=== PATIENT | male | born 1975 | race African-American/Black ===

== ENCOUNTER 2017-02-07 10:57 | Emergency (ER) | payer MEDICARE, MEDICAID ==
[~2017-02-07] VITALS: Ht 182.9 cm; Wt 125.0 kg
[~2017-02-07 10:57] MED LIST: ADVAIR; COREG; EFFEXOR XR; EPIZICOM; IBUPROFEN; LIPITOR; LOVAZA; METFORMIN; VENTOLIN; [UNRECOGNIZED DRUG - OTHER]
[2017-02-07] MEDS ORDERED: ACETAMINOPHEN 325MG TABLET PO ONE (11:45)
[2017-02-07] MEDS ORDERED: BACITRACIN ZINC OINT UDPKT TOP ONE (11:45)
[2017-02-07] MEDS ORDERED: TETANUS, DIPHTHERIA, PERTUSSIS VAC/PF 0.5ML (>7YR OLD) IM ONE (11:45)
[2017-02-07] MEDS ORDERED: LIDOCAINE HCL 1% 20ML VIAL (Pyxis) INJ MC ONE (12:30)
[2017-02-07 16:09] VITALS: BP 157/97
== END 2017-02-07 16:54 | disposition home or self-care (01) ==
LOC: ER 12:21
DX: S61.011A Laceration without foreign body of right thumb without damage to nail, initial encounter (principal); W27.1XXA Contact with garden tool, initial encounter; Y93.H2 Activity, gardening and landscaping; Y92.096 Garden or yard of other non-institutional residence as the place of occurrence of the external cause; R03.0 Elevated blood-pressure reading, without diagnosis of hypertension; E11.9 Type 2 diabetes mellitus without complications; F17.210 Nicotine dependence, cigarettes, uncomplicated
CPT/HCPCS: 12002; 73140; 90471; 90715; 99284; J3490

== ENCOUNTER 2018-12-18 16:24 | Emergency (ER) | payer MEDICARE, MEDICAID ==
[~2018-12-18] VITALS: Ht 185.4 cm; Wt 82.0 kg
[2018-12-18] MEDS ORDERED: LEVOFLOXACIN 500MG TABLET PO ONE (18:45)
[2018-12-18] MEDS ORDERED: PREDNISONE 20MG TABLET PO ONE (18:45)
[2018-12-18] MEDS ORDERED: IPRATROPIUM/ALBUTEROL 0.5-3(2.5)MG/3ML NEB HHN ONE (18:45)
[2018-12-18] MEDS ORDERED: IBUPROFEN 800MG TABLET PO ONE (18:45)
[2018-12-18 18:51] VITALS: BP 155/99
== END 2018-12-18 19:18 | disposition home or self-care (01) ==
LOC: ER 16:24
DX: S39.012A Strain of muscle, fascia and tendon of lower back, initial encounter (principal); J40 Bronchitis, not specified as acute or chronic; J44.9 Chronic obstructive pulmonary disease, unspecified; E11.9 Type 2 diabetes mellitus without complications; I10 Essential (primary) hypertension; F17.200 Nicotine dependence, unspecified, uncomplicated; V49.49XA Driver injured in collision with other motor vehicles in traffic accident, initial encounter; Y93.89 Activity, other specified; Y92.89 Other specified places as the place of occurrence of the external cause; Y99.8 Other external cause status; Z79.899 Other long term (current) drug therapy; Z88.0 Allergy status to penicillin
CPT/HCPCS: 94640; 99284; 99406; J7512; J7620

== ENCOUNTER 2021-09-21 10:01 | Emergency (ER) | payer MEDICARE, MEDICAID ==
[~2021-09-21] VITALS: Ht 185.4 cm; Wt 111.0 kg
[2021-09-21] MEDS ORDERED: ALBUTEROL (0.083%) 2.5MG/3ML NEB HHN STA (10:12)
[2021-09-21] MEDS ORDERED: IPRATROPIUM BROMIDE (0.02%) 0.5MG/2.5ML NEB HHN STA (10:12)
[2021-09-21] MEDS ORDERED: LEVO500T89 MT (11:22)
[2021-09-21] MEDS ORDERED: ALBU6.7H9 INH (11:22)
[2021-09-21 12:14] VITALS: BP 148/87
== END 2021-09-21 12:20 | disposition home or self-care (01) ==
LOC: ER 10:01
DX: J44.1 Chronic obstructive pulmonary disease with (acute) exacerbation (principal); E11.9 Type 2 diabetes mellitus without complications; I10 Essential (primary) hypertension; Z88.0 Allergy status to penicillin
CPT/HCPCS: 71045; 94644; 99285

== ENCOUNTER 2022-03-03 18:15 | Inpatient (IN) | payer MEDICARE, MEDICAID ==
[~2022-03-03] VITALS: Ht 175.3 cm; Wt 105.9 kg
[~2022-03-03 18:15] MED LIST changes: +ALBU6.7H9 INH; +LEVO500T89 MT
[2022-03-03] MEDS ORDERED: METHYLPREDNISOLONE SOD SUCC 125 MG/2 ML VIAL IV STA (18:38)
[2022-03-03] MEDS ORDERED: IPRATROPIUM BROMIDE (0.02%) 0.5MG/2.5ML NEB HHN STA (18:38)
[2022-03-03] MEDS ORDERED: ALBUTEROL (0.083%) 2.5MG/3ML NEB HHN STA (18:38)
[2022-03-03] MEDS ORDERED: HYDRALAZINE 20MG/ML VIAL IV ONE (18:45)
[2022-03-03] MEDS ORDERED: MAGNESIUM 2 G PREMIX 50 ML IV ONE (18:45)
[2022-03-03] MEDS ORDERED: AZITHROMYCIN 500 MG in DEXT 5% WATER 250 ML IV SCH (18:45)
[2022-03-03] MEDS ORDERED: CEFTRIAXONE 1 G PREMIX 50 ML IV ONE (18:45)
[2022-03-03 19:09] LABS: BG CARBOXYHEMOGLOBIN 2.1 % (0.5-1.5); BG DEOXYHEMOGLOBIN 5.5 % (0.0-5.0); BG FRACTION INSPIRED OXYGEN 36; BG HCO3 ACT 32.7 mmol/L (22.0-26.0); BG METHEMOGLOBIN 0.2 % (0.0-1.5); BG OXYGEN SATURATION 94.4 % (92.0-98.5); BG OXYHEMOGLOBIN 92.2 % (94.0-97.0); BG PCO2 60.5 mmHg (35.0-45.0); BG PO2 73.4 mmHg (75.0-100.0); BG SAMPLE SITE RIGHT RADIAL; BG TOTAL HEMOGLOBIN 15.3 g/dL (12.0-18.0); BG VENT MODE NASAL CANNULA
[2022-03-03 19:28] LABS: BASOPHILS % 0.7 % (0.0-2.0); EOSINOPHILS % 0.8 % (0.0-5.0); HEMATOCRIT. 41.9 % (42.0-52.0); HEMOGLOBIN. 14.2 g/dL (14.0-18.0); MEAN CORPUSCULAR HEMOGLOBIN 29.5 pg (28.0-32.0); MEAN PLATELET VOLUME 8.8 fl (7.4-10.4); MONOCYTES % 10.1 % (2.0-8.0); NEUTROPHILS % 61.4 % (40.0-76.0); PLATELET 246 x1000/uL (130-400); RED BLOOD CELL COUNT 4.82 mill/uL (4.7-6.1)
[2022-03-03 19:29] LABS: CHLORIDE 99 mEq/L (98-107)
[2022-03-03 22:48] LABS: BG BASE EXCESS 2.6 mmol/L (-2.0-2.0); BG CARBOXYHEMOGLOBIN 1.4 % (0.5-1.5); BG DEOXYHEMOGLOBIN 4.2 % (0.0-5.0); BG FRACTION INSPIRED OXYGEN 36; BG HCO3 ACT 29.4 mmol/L (22.0-26.0); BG METHEMOGLOBIN 0.2 % (0.0-1.5); BG OXYGEN SATURATION 95.7 % (92.0-98.5); BG OXYHEMOGLOBIN 94.2 % (94.0-97.0); BG PCO2 53.4 mmHg (35.0-45.0); BG PH 7.358 (7.350-7.450); BG SAMPLE SITE RIGHT RADIAL; BG TOTAL HEMOGLOBIN 15.2 g/dL (12.0-18.0); BG VENT MODE NASAL CANNULA
[2022-03-04] VITALS (9 sets, daily range): BP systolic 118–173; BP diastolic 86–114
[2022-03-04] MEDS ORDERED: HYDROCODONE/ACETAMINOPHEN 5/325MG TABLET PO PRN (04:30)
[2022-03-04] MEDS ORDERED: IPRATROPIUM/ALBUTEROL 0.5-3(2.5)MG/3ML NEB HHN PRN ×2 (04:30→14:30)
[2022-03-04] MEDS ORDERED: IPRATROPIUM/ALBUTEROL 0.5-3(2.5)MG/3ML NEB HHN SCH (04:30)
[2022-03-04] MEDS ORDERED: NALOXONE HCL 0.4 MG/ML 1ML VIAL IV PRN (05:15)
[2022-03-04] MEDS: METHYLPREDNISOLONE SOD SUCC 125 MG/2 ML VIAL IV SCH ×2 (06:02→12:05)
[2022-03-04] MEDS ORDERED: DEXTROSE 50% WATER 50ML SYRINGE IV PRN (06:45)
[2022-03-04] MEDS ORDERED: IBUPROFEN 400MG TABLET PO PRN (07:00)
[2022-03-04] MEDS ORDERED: SALMETEROL 50 MCG/INH 28 BLIST DISKUS INHR ORI SCH (09:00)
[2022-03-04] MEDS: BLOOD SUGAR DIAGNOSTIC STRIP TEST SCH ×4 (09:00→21:14)
[2022-03-04] MEDS: CARVEDILOL 3.125 MG TABLET PO SCH ×2 (09:16→21:13)
[2022-03-04] MEDS: VENLAFAXINE HCL 37.5MG SR CAPSULE 24HR PO SCH (09:16)
[2022-03-04] MEDS: GEMFIBROZIL 600MG TABLET PO SCH ×2 (09:16→17:06)
[2022-03-04] MEDS: METFORMIN HCL 500MG TABLET PO SCH ×2 (09:16→17:06)
[2022-03-04] MEDS: INSULIN LISPRO 100 UNITS/ML SUBCUT SCH ×4 (09:17→21:14)
[2022-03-04] MEDS ORDERED: ALBUTEROL (0.083%) 2.5MG/3ML NEB HHN SCH (12:00)
[2022-03-04] MEDS: NICOTINE 21MG PATCH TD SCH (15:23)
[2022-03-04] MEDS: LEVOFLOXACIN 500MG PREMIX 100 ML IV SCH (15:40)
[2022-03-04] MEDS: AMLODIPINE 5MG TABLET PO SCH (17:34)
[2022-03-04] MEDS ORDERED: AMLODIPINE 5MG TABLET PO SCH (21:00)
[2022-03-04] MEDS: GUAIFENESIN 600MG ER TABLET PO SCH (21:11)
[2022-03-04] MEDS: ATORVASTATIN CALCIUM 20MG TABLET PO SCH (21:12)
[2022-03-04] MEDS: METHYLPREDNISOLONE SOD SUCC 40 MG/ML VIAL IV SCH (21:12)
[2022-03-04] MEDS: IPRATROPIUM/ALBUTEROL 0.5-3(2.5)MG/3ML NEB HHN SCH (21:34)
[2022-03-05] VITALS (12 sets, daily range): BP systolic 141–165; BP diastolic 68–108
[2022-03-05] MEDS: IPRATROPIUM/ALBUTEROL 0.5-3(2.5)MG/3ML NEB HHN SCH ×4 (00:58→20:40)
[2022-03-05] MEDS: METHYLPREDNISOLONE SOD SUCC 40 MG/ML VIAL IV SCH ×3 (05:31→21:17)
[2022-03-05 07:11] LABS: BASOPHILS % 0.1 % (0.0-2.0); HEMOGLOBIN. 14.6 g/dL (14.0-18.0); LYMPHOCYTES % 7.8 % (20.0-50.0); MEAN CORPUSCULAR HEMOGLOBIN 29.6 pg (28.0-32.0); MEAN CORPUSCULAR VOLUME 86.9 fL (80.0-94.0); MONOCYTES % 5.1 % (2.0-8.0); PLATELET 303 x1000/uL (130-400); RED BLOOD CELL COUNT 4.94 mill/uL (4.7-6.1); RED CELL DISTRIBUTION WIDTH 13.2 % (11.6-14.6)
[2022-03-05 07:36] LABS: CHLORIDE 101 mEq/L (98-107)
[2022-03-05] MEDS: BLOOD SUGAR DIAGNOSTIC STRIP TEST SCH ×4 (08:34→21:26)
[2022-03-05] MEDS: VENLAFAXINE HCL 37.5MG SR CAPSULE 24HR PO SCH (08:35)
[2022-03-05] MEDS: GEMFIBROZIL 600MG TABLET PO SCH ×2 (08:35→17:11)
[2022-03-05] MEDS: METFORMIN HCL 500MG TABLET PO SCH ×2 (08:35→17:11)
[2022-03-05] MEDS: GUAIFENESIN 600MG ER TABLET PO SCH ×2 (08:35→21:17)
[2022-03-05] MEDS: NICOTINE 21MG PATCH TD SCH (08:36)
[2022-03-05] MEDS: CARVEDILOL 3.125 MG TABLET PO SCH ×2 (08:43→21:18)
[2022-03-05] MEDS: AMLODIPINE 5MG TABLET PO SCH ×2 (08:43→21:18)
[2022-03-05] MEDS: INSULIN LISPRO 100 UNITS/ML SUBCUT SCH ×4 (08:47→21:24)
[2022-03-05] MEDS: LEVOFLOXACIN 500MG PREMIX 100 ML IV SCH (15:27)
[2022-03-05] MEDS: ATORVASTATIN CALCIUM 20MG TABLET PO SCH (21:18)
[2022-03-06] VITALS (12 sets, daily range): BP systolic 123–172; BP diastolic 68–112
[2022-03-06] MEDS: IPRATROPIUM/ALBUTEROL 0.5-3(2.5)MG/3ML NEB HHN SCH ×4 (02:15→20:18)
[2022-03-06] MEDS: METHYLPREDNISOLONE SOD SUCC 40 MG/ML VIAL IV SCH ×3 (05:27→22:34)
[2022-03-06 06:51] LABS: BASOPHILS % 0.2 % (0.0-2.0); HEMATOCRIT. 44.9 % (42.0-52.0); HEMOGLOBIN. 15.3 g/dL (14.0-18.0); LYMPHOCYTES % 10.3 % (20.0-50.0); MEAN CORPUSCULAR HEMOGLOBIN 29.4 pg (28.0-32.0); MEAN CORPUSCULAR VOLUME 86.3 fL (80.0-94.0); MEAN PLATELET VOLUME 8.9 fl (7.4-10.4); MONOCYTES % 6.6 % (2.0-8.0); NEUTROPHILS % 82.9 % (40.0-76.0); PLATELET 328 x1000/uL (130-400); RED CELL DISTRIBUTION WIDTH 13.3 % (11.6-14.6)
[2022-03-06 07:18] LABS: CHLORIDE 100 mEq/L (98-107)
[2022-03-06] MEDS: BLOOD SUGAR DIAGNOSTIC STRIP TEST SCH ×4 (08:15→20:46)
[2022-03-06] MEDS: GUAIFENESIN 600MG ER TABLET PO SCH ×2 (08:16→20:36)
[2022-03-06] MEDS: AMLODIPINE 5MG TABLET PO SCH (08:16)
[2022-03-06] MEDS: VENLAFAXINE HCL 37.5MG SR CAPSULE 24HR PO SCH (08:16)
[2022-03-06] MEDS: GEMFIBROZIL 600MG TABLET PO SCH ×2 (08:17→17:07)
[2022-03-06] MEDS: CARVEDILOL 3.125 MG TABLET PO SCH ×2 (08:17→20:38)
[2022-03-06] MEDS: METFORMIN HCL 500MG TABLET PO SCH ×2 (08:17→17:07)
[2022-03-06] MEDS: NICOTINE 21MG PATCH TD SCH (08:17)
[2022-03-06] MEDS: INSULIN LISPRO 100 UNITS/ML SUBCUT SCH ×4 (08:17→20:46)
[2022-03-06] MEDS: LEVOFLOXACIN 500MG PREMIX 100 ML IV SCH (16:28)
[2022-03-06] MEDS ORDERED: CLONIDINE 0.2MG TABLET PO PRN (16:45)
[2022-03-06] MEDS: ATORVASTATIN CALCIUM 20MG TABLET PO SCH (20:38)
[2022-03-06] MEDS: HYDRALAZINE HCL 50MG TABLET PO SCH (22:36)
[2022-03-07] VITALS (9 sets, daily range): BP systolic 127–150; BP diastolic 68–99
[2022-03-07] MEDS: IPRATROPIUM/ALBUTEROL 0.5-3(2.5)MG/3ML NEB HHN SCH ×3 (01:44→14:39)
[2022-03-07] MEDS: METHYLPREDNISOLONE SOD SUCC 40 MG/ML VIAL IV SCH (05:59)
[2022-03-07] MEDS: HYDRALAZINE HCL 50MG TABLET PO SCH ×2 (06:01→14:01)
[2022-03-07] MEDS: BLOOD SUGAR DIAGNOSTIC STRIP TEST SCH ×2 (07:30→12:30)
[2022-03-07] MEDS ORDERED: AMLODIPINE 10MG TABLET PO SCH (09:00)
[2022-03-07] MEDS: GUAIFENESIN 600MG ER TABLET PO SCH (09:53)
[2022-03-07] MEDS: CARVEDILOL 3.125 MG TABLET PO SCH (09:54)
[2022-03-07] MEDS: METFORMIN HCL 500MG TABLET PO SCH (09:54)
[2022-03-07] MEDS: VENLAFAXINE HCL 37.5MG SR CAPSULE 24HR PO SCH (09:54)
[2022-03-07] MEDS: NICOTINE 21MG PATCH TD SCH (09:55)
[2022-03-07] MEDS: INSULIN LISPRO 100 UNITS/ML SUBCUT SCH ×2 (09:58→14:00)
[2022-03-07] MEDS: GEMFIBROZIL 600MG TABLET PO SCH (10:01)
[2022-03-07] MEDS ORDERED: INSULIN LISPRO 100 UNITS/ML SUBCUT NR (14:15)
[2022-03-08] MEDS ORDERED: METHYLPREDNISOLONE SOD SUCC 40 MG/ML VIAL IV SCH (09:00)
== END 2022-03-07 22:45 | disposition home or self-care (01) | DRG 193 ==
LOC: ER 18:15 → EDBEDREQ 22:12 → EDBEDREQTM 22:12 → EDBEDREQ 22:18 → 5EST 23:07 → EDBEDREQTM 23:13 → EDBEDREQ 23:13 → EDBEDREQSVC 23:13 → ENRESERV 03-04 00:58
PROVIDERS: ADMIT Internal Medicine; ATTEND Internal Medicine
PROC: 5A09357 Assistance with Respiratory Ventilation, Less than 24 Consecutive Hours, Continuous Positive Airway Pressure (ICD-10-PCS; principal; 2022-03-04)
DX: J18.9 Pneumonia, unspecified organism (principal); J96.01 Acute respiratory failure with hypoxia; J96.02 Acute respiratory failure with hypercapnia; J44.1 Chronic obstructive pulmonary disease with (acute) exacerbation; E44.0 Moderate protein-calorie malnutrition; J44.0 Chronic obstructive pulmonary disease with (acute) lower respiratory infection; R65.10 Systemic inflammatory response syndrome (SIRS) of non-infectious origin without acute organ dysfunction; M79.7 Fibromyalgia; I10 Essential (primary) hypertension; F17.200 Nicotine dependence, unspecified, uncomplicated; E11.65 Type 2 diabetes mellitus with hyperglycemia; F17.210 Nicotine dependence, cigarettes, uncomplicated; Z68.34 Body mass index [BMI] 34.0-34.9, adult
CPT/HCPCS: 36415; 36600; 71045; 80048; 80053; 82375; 82805; 82962; 83880; 84145; 85025; 87426; 93005; 94640; 94644; 99291; C9803; J0360; J0456; J0696; J1815; J1956; J2920; J2930; J3475; J7060

== ENCOUNTER 2022-08-08 05:21 | Inpatient (IN) | payer MEDICARE, MEDICAID ==
[~2022-08-08] VITALS: Ht 185.4 cm; Wt 113.9 kg
[2022-08-08] MEDS: IPRATROPIUM/ALBUTEROL 0.5-3(2.5)MG/3ML NEB HHN SCH ×3 (02:38→21:22)
[~2022-08-08 05:21] MED LIST changes: +ALBU6.7H3 INH; -ALBU6.7H9 INH; -LEVO500T89 MT
[2022-08-08] MEDS ORDERED: IPRATROPIUM BROMIDE (0.02%) 0.5MG/2.5ML NEB HHN STA (05:54)
[2022-08-08] MEDS ORDERED: METHYLPREDNISOLONE SOD SUCC 125 MG/2 ML VIAL IV STA (05:54)
[2022-08-08] MEDS ORDERED: MAGNESIUM 2 G PREMIX 50 ML IV STA (05:54)
[2022-08-08] MEDS ORDERED: ALBUTEROL (0.083%) 2.5MG/3ML NEB HHN STA (05:54)
[2022-08-08 06:25] LABS: CHLORIDE 100 mEq/L (98-107)
[2022-08-08 06:37] LABS: BASOPHILS % 0.5 % (0.0-2.0); EOSINOPHILS % 0.4 % (0.0-5.0); HEMATOCRIT. 42.2 % (42.0-52.0); HEMOGLOBIN. 14.4 g/dL (14.0-18.0); LYMPHOCYTES % 17.6 % (20.0-50.0); MEAN CORPUSCULAR HEMOGLOBIN 29.9 pg (28.0-32.0); MEAN CORPUSCULAR VOLUME 87.5 fL (80.0-94.0); MEAN PLATELET VOLUME 9.4 fl (7.4-10.4); NEUTROPHILS % 68.5 % (40.0-76.0); PLATELET 214 x1000/uL (130-400); RED BLOOD CELL COUNT 4.82 mill/uL (4.7-6.1); RED CELL DISTRIBUTION WIDTH 13.6 % (11.6-14.6)
[2022-08-08 10:15] VITALS: BP 152/89
[2022-08-08] MEDS ORDERED: ACETAMINOPHEN 325MG TABLET PO PRN ×2 (11:15)
[2022-08-08] MEDS ORDERED: PROMETHAZINE/DEXTROMETHORPHAN 6.25-15MG/5ML BOTTLE 120ML PO PRN (11:15)
[2022-08-08] MEDS ORDERED: ENOXAPARIN 40MG/0.4ML SYR SUBCUT SCH (11:15)
[2022-08-08] MEDS ORDERED: HYDRALAZINE 20MG/ML VIAL IV PRN (11:15)
[2022-08-08] MEDS: AMLODIPINE 10MG TABLET PO SCH (11:15)
[2022-08-08] MEDS: METHYLPREDNISOLONE SOD SUCC 40 MG/ML VIAL IV SCH ×2 (11:15→20:11)
[2022-08-08] MEDS ORDERED: DEXTROSE 50% WATER 50ML SYRINGE IV PRN (11:15)
[2022-08-08] MEDS ORDERED: ONDANSETRON HCL 4MG/2ML INJ IV PRN (11:15)
[2022-08-08] MEDS ORDERED: ZOLPIDEM TARTRATE 5MG TABLET PO PRN (11:15)
[2022-08-08] MEDS ORDERED: MAGNESIUM/ALUMINUM HYDROXIDE/SIMETHICONE 30ML UDC PO PRN (11:15)
[2022-08-08] MEDS ORDERED: CLONIDINE 0.1MG TABLET PO PRN (11:15)
[2022-08-08] MEDS ORDERED: IPRATROPIUM/ALBUTEROL 0.5-3(2.5)MG/3ML NEB HHN PRN (11:15)
[2022-08-08 12:00] VITALS: BP 129/88
[2022-08-08] MEDS: BLOOD SUGAR DIAGNOSTIC STRIP TEST SCH ×3 (13:05→20:15)
[2022-08-08] MEDS: INSULIN LISPRO 100 UNITS/ML SUBCUT SCH ×3 (13:11→21:44)
[2022-08-08] MEDS: SODIUM CHLORIDE 0.9% INJ 3ML FLUSH IVF SCH ×2 (14:00→21:36)
[2022-08-08] MEDS: HYDRALAZINE HCL 50MG TABLET PO SCH ×2 (14:00→21:37)
[2022-08-08 16:00] VITALS: BP 178/105
[2022-08-08 16:45] VITALS: BP 145/89
[2022-08-08] MEDS ORDERED: INFLUENZA VACCINE 05/PF 0.5 ML SYRINGE IM ONE (17:45)
[2022-08-08] MEDS: METFORMIN HCL 500MG TABLET PO SCH (18:22)
[2022-08-08 20:00] VITALS: BP 154/91
[2022-08-08] MEDS: PANTOPRAZOLE 40MG DR TABLET PO SCH (20:11)
[2022-08-08] MEDS: ATORVASTATIN CALCIUM 20MG TABLET PO SCH (20:11)
[2022-08-08] MEDS: GUAIFENESIN 600MG ER TABLET PO SCH (20:16)
[2022-08-08] MEDS: CARVEDILOL 3.125 MG TABLET PO SCH (20:17)
[2022-08-08] MEDS: INSULIN GLARGINE 100 UNITS/ML SUBCUT SCH (21:42)
[2022-08-08] MEDS ORDERED: CLONIDINE 0.2MG TABLET PO PRN (22:45)
[2022-08-09] VITALS: BP 128/75
[2022-08-09 04:00] VITALS: BP 136/71
[2022-08-09] MEDS: METHYLPREDNISOLONE SOD SUCC 40 MG/ML VIAL IV SCH ×3 (04:11→20:35)
[2022-08-09] MEDS: SODIUM CHLORIDE 0.9% INJ 3ML FLUSH IVF SCH ×3 (05:15→20:36)
[2022-08-09] MEDS: HYDRALAZINE HCL 50MG TABLET PO SCH ×3 (05:15→20:35)
[2022-08-09] MEDS: PANTOPRAZOLE 40MG DR TABLET PO SCH (07:40)
[2022-08-09] MEDS: IPRATROPIUM/ALBUTEROL 0.5-3(2.5)MG/3ML NEB HHN SCH ×3 (07:44→20:26)
[2022-08-09 08:00] VITALS: BP 133/77
[2022-08-09] MEDS: INSULIN LISPRO 100 UNITS/ML SUBCUT SCH ×4 (08:10→20:48)
[2022-08-09] MEDS: METFORMIN HCL 500MG TABLET PO SCH ×2 (08:10→17:51)
[2022-08-09] MEDS: BLOOD SUGAR DIAGNOSTIC STRIP TEST SCH ×4 (08:36→20:36)
[2022-08-09] MEDS: CARVEDILOL 3.125 MG TABLET PO SCH ×2 (09:00→20:36)
[2022-08-09] MEDS: NICOTINE 21MG PATCH TD SCH (09:00)
[2022-08-09] MEDS: VENLAFAXINE HCL 37.5MG SR CAPSULE 24HR PO SCH (09:00)
[2022-08-09] MEDS: AZITHROMYCIN 500 MG TABLET PO SCH (09:00)
[2022-08-09] MEDS: ENOXAPARIN 30MG/0.3ML SYR SUBCUT SCH ×2 (09:00→20:35)
[2022-08-09] MEDS: GUAIFENESIN 600MG ER TABLET PO SCH ×2 (09:00→20:36)
[2022-08-09] MEDS: AMLODIPINE 10MG TABLET PO SCH (09:00)
[2022-08-09 12:00] VITALS: BP_SYST 132; BP_SYST 180; BP_DIAS 88; BP_DIAS 99
[2022-08-09 16:00] VITALS: BP 133/83
[2022-08-09 20:00] VITALS: BP 152/94
[2022-08-09] MEDS: FAMOTIDINE 20MG TABLET PO SCH (20:35)
[2022-08-09] MEDS: INSULIN GLARGINE 100 UNITS/ML SUBCUT SCH (20:49)
[2022-08-09] MEDS: ATORVASTATIN CALCIUM 20MG TABLET PO SCH (21:00)
[2022-08-10 00:05] VITALS: BP 137/64
[2022-08-10] MEDS: IPRATROPIUM/ALBUTEROL 0.5-3(2.5)MG/3ML NEB HHN SCH (02:35)
[2022-08-10] MEDS: METHYLPREDNISOLONE SOD SUCC 40 MG/ML VIAL IV SCH ×2 (03:40→11:01)
[2022-08-10 04:00] VITALS: BP 144/83
[2022-08-10] MEDS: HYDRALAZINE HCL 50MG TABLET PO SCH (05:37)
[2022-08-10] MEDS: BLOOD SUGAR DIAGNOSTIC STRIP TEST SCH ×2 (05:37→12:24)
[2022-08-10] MEDS: SODIUM CHLORIDE 0.9% INJ 3ML FLUSH IVF SCH (05:37)
[2022-08-10] MEDS: INSULIN LISPRO 100 UNITS/ML SUBCUT SCH ×2 (05:48→12:24)
[2022-08-10 08:00] VITALS: BP 166/105
[2022-08-10] MEDS: NICOTINE 21MG PATCH TD SCH (08:45)
[2022-08-10] MEDS: METFORMIN HCL 500MG TABLET PO SCH (08:45)
[2022-08-10] MEDS: FAMOTIDINE 20MG TABLET PO SCH (08:45)
[2022-08-10] MEDS: AMLODIPINE 10MG TABLET PO SCH (08:45)
[2022-08-10] MEDS: ENOXAPARIN 30MG/0.3ML SYR SUBCUT SCH (08:45)
[2022-08-10] MEDS: GUAIFENESIN 600MG ER TABLET PO SCH (08:46)
[2022-08-10] MEDS: CARVEDILOL 3.125 MG TABLET PO SCH (08:46)
[2022-08-10] MEDS: AZITHROMYCIN 500 MG TABLET PO SCH (08:46)
[2022-08-10] MEDS: VENLAFAXINE HCL 37.5MG SR CAPSULE 24HR PO SCH (08:46)
[2022-08-10 12:00] VITALS: BP 150/112
[2022-08-10] MEDS ORDERED: PRED10TA PO (12:25)
[2022-08-10] MEDS ORDERED: P20 PO (12:25)
[2022-08-10] MEDS ORDERED: P50 PO (12:25)
[2022-08-10 12:34] VITALS: BP 150/112
== END 2022-08-10 13:07 | disposition home or self-care (01) | DRG 189 ==
LOC: ER 05:21 → EDBEDREQ 07:16 → EDBEDREQTM 07:16 → ENRESERV 09:02 → 7WST 09:45
PROVIDERS: ADMIT Internal Medicine; ATTEND Internal Medicine
DX: J96.02 Acute respiratory failure with hypercapnia (principal); J44.1 Chronic obstructive pulmonary disease with (acute) exacerbation; I50.20 Unspecified systolic (congestive) heart failure; J96.01 Acute respiratory failure with hypoxia; I11.0 Hypertensive heart disease with heart failure; Z20.822 Contact with and (suspected) exposure to COVID-19; R77.8 Other specified abnormalities of plasma proteins; E78.00 Pure hypercholesterolemia, unspecified; E11.65 Type 2 diabetes mellitus with hyperglycemia; E78.5 Hyperlipidemia, unspecified; F17.210 Nicotine dependence, cigarettes, uncomplicated; Z88.0 Allergy status to penicillin; Z23 Encounter for immunization; Z79.899 Other long term (current) drug therapy
CPT/HCPCS: 36415; 71045; 80053; 82962; 83036; 83880; 84484; 85025; 87426; 93005; 93306; 94640; 94644; 99285; A6261; C9803; J0360; J1650; J1815; J2920; J2930; J3475